=== PATIENT | male | born 1995 | race American Indian/Alaskan Native ===

== ENCOUNTER 2017-01-06 11:02 | Emergency (ER) | payer OTHER ==
[2017-01-06 11:33] VITALS: BP 120/70
[2017-01-06 11:51] LABS: Basophils % (Auto) 0.4 % (0.0-1.8); Eosinophils % (Auto) 0.4 % (0.0-4.3); Hematocrit 36.9 % (35.5-45.6); Hemoglobin 12.2 gm/dl (11.8-15.2); Mean Corpuscular HGB Conc 33 % (32-34); Mean Corpuscular Hemoglobin 31 pg (28-32); Mean Corpuscular Volume 94 fl (84-94); Platelet Count 389 K/mm3 (140-440); Red Blood Count 3.92 M/mm3 (3.65-5.03); Red Cell Distribution Width 13.2 % (13.2-15.2); White Blood Count 8.9 K/mm3 (4.5-11.0)
[2017-01-06 12:08] LABS: Anion Gap 16 mmol/L; Blood Urea Nitrogen 14 mg/dL (9-20); Calcium 8.8 mg/dL (8.4-10.2); Carbon Dioxide 28 mmol/L (22-30); Chloride 101.2 mmol/L (98-107); Glucose 91 mg/dL (75-100); Sodium 141 mmol/L (137-145)
[2017-01-06] MEDS ORDERED: DUONEB *Not for PRN Use IH ONE (12:08)
[2017-01-06] MEDS ORDERED: TESSALON PERLES PO ONE (12:08)
--- NOTE | 2017-01-06 12:08 | Emergency Department Report ---
HPI - General Chief Complaint: Upper Respiratory Infection Time Seen by Provider: 01/06/17 11:51 - HPI HPI: This is a 21-year-old Afro-I[place]ian male presents to emergency department with complaint of a two-week history of a productive cough with yellow and greenish sputum and a one-week history of subjective fever. The patient goes to [facility] and saw a nurse at the health center and was placed on doxycycline and naproxen. He continues to have this productive cough and subjective fever and so he returns here for further evaluation. He is a tobacco smoker but denies any illicit drug use. No recent travel or sick contacts at home. He does not have a primary care physician. He denies any known past medical history. ED Past Medical Hx - Past Medical History Previous Medical History?: Yes Hx HIV: No Additional medical history: Poss. HPV - Surgical History Past Surgical History?: Yes Additional Surgical History: Sinus surgery - Social History Smoking Status: Current Every Day Smoker Substance Use Type: Marijuana - Medications Home Medications: Home Medications Medication Instructions Recorded Confirmed Last Taken Type ALBUTEROL Inhaler [ProAir HFA 2 puff IH QID PRN #1 inhalation 01/06/17 Unknown Rx Inhaler] Benzonatate [Tessalon Perles] 100 mg PO Q8HR PRN #20 capsule 01/06/17 Unknown Rx ED Review of Systems ROS: Stated complaint: FEVER/DEHYDRATION/COUGH Other details as noted in HPI Comment: All other systems reviewed and negative Constitutional: chills, fever (subjective) Eyes: denies: eye pain, eye discharge, vision change ENT: denies: ear pain, throat pain Respiratory: cough. denies: orthopnea Cardiovascular: denies: chest pain, edema Gastrointestinal: denies: abdominal pain, nausea, diarrhea Genitourinary: denies: urgency, dysuria Musculoskeletal: denies: back pain, joint swelling, arthralgia Skin: denies: rash, lesions Neurological: denies: headache, weakness, paresthesias Physical Exam - Physical Exam Vital Signs: Vital Signs 01/06/17 01/06/17 11:24 11:53 Temperature 99.2 F 99.1 F Pulse Rate 96 H 80 Respiratory 20 20 Rate Blood Pressure 120/70 O2 Sat by Pulse 96 97 Oximetry Physical Exam: GENERAL: The patient is well-developed well-nourished. HENT: Normocephalic. Atraumatic. Patient has moist mucous membranes. Oropharynx is clear without tonsillar hypertrophy, erythema or exudates. EYES: Extraocular motions are intact. Pupils equal reactive to light bilaterally. NECK: Supple. Trachea is midline. CHEST/LUNGS: Clear to auscultation. There is no respiratory distress noted. No tachypnea or accessory muscle use. No cough heard during examination. HEART/CARDIOVASCULAR: Regular. There is no tachycardia. There is no gallop rub or murmur. ABDOMEN: Abdomen is soft, nontender. Patient has normal bowel sounds. There is no abdominal distention. SKIN: Skin is warm and dry. NEURO: The patient is awake, alert, and oriented. The patient is cooperative. The patient has no focal neurologic deficits. The patient has normal speech and gait. MUSCULOSKELETAL: There is no tenderness or deformity. There is no limitation range of motion. There is no evidence of acute injury. ED Course Vital Signs 01/06/17 01/06/17 11:24 11:53 Temperature 99.2 F 99.1 F Pulse Rate 96 H 80 Respiratory 20 20 Rate Blood Pressure 120/70 O2 Sat by Pulse 96 97 Oximetry ED Medical Decision Making - Lab Data Result diagrams: 01/06/17 11:39 01/06/17 11:39 - Radiology Data Radiology results: image reviewed interpreted by me: Chest x-ray does not show any acute process. There are no pleural effusions, obvious pneumonia and there is no pneumothorax. - Medical Decision Making 21-year-old male who is a chronic smoker presents with a chronic cough and some subjective fevers. He does not appear to have any fever here, any hypoxia and the rest of his vitals are stable. Labs are unremarkable including no leukocytosis. Chest x-ray does not show any pneumonia, pleural effusions, pneumothorax or any acute process. He was given a Tessalon Perle for cough and a breathing treatment. He will be given the same for a prescription for home as well as referrals for primary care. He appears safe for discharge home. - Differential Diagnosis asthma, bronchitis, pneumonia Critical Care Time: No Critical care attestation.: If time is entered above; I have spent that time in minutes in the direct care of this critically ill patient, excluding procedure time. ED Disposition Clinical Impression: Tobacco abuse, Bronchitis Disposition: DC-01 TO HOME OR SELFCARE Is pt being admited?: No Condition: Stable Instructions: Acute Bronchitis (ED) Additional Instructions: Follow-up with a primary care physician in the next few days if possible. Return to the emergency Department with any worsening of your symptoms or any acute distress. Prescriptions: ALBUTEROL Inhaler [ProAir HFA Inhaler] 2 puff IH QID PRN #1 inhalation PRN Reason: Shortness Of Breath Benzonatate [Tessalon Perles] 100 mg PO Q8HR PRN #20 capsule PRN Reason: Cough Referrals: PRIMARY CARE, [Primary Care Provider] - 3-5 Days SMITHA FALLON MD [Staff Physician] - 3-5 Days SHAD JOHNSON MD [Staff Physician] - 3-5 Days Time of Disposition: 12:50
--- NOTE | 2017-01-06 14:43 | XRay Report ---
ROUTINE CHEST, TWO VIEWS: History: Shortness of breath. PA and lateral views demonstrate the heart and mediastinal contour to be of normal size and shape. The lungs are clear and fully expanded and the soft tissues and bony structures are normal. IMPRESSION: Normal study.
== END 2017-01-06 13:47 | disposition home or self-care (01) ==
LOC: ED 11:02
DX: J40 Bronchitis, not specified as acute or chronic (principal); F17.200 Nicotine dependence, unspecified, uncomplicated
CPT/HCPCS: 36415; 71020; 80048; 85025

== ENCOUNTER 2017-11-14 20:02 | Emergency (ER) | payer BC ==
[2017-11-14 21:29] LABS: Basophils # (Auto) 0.1 K/mm3 (0.0-0.1); Basophils % (Auto) 0.5 % (0.0-1.8); Eosinophils % (Auto) 0.1 % (0.0-4.3); Hematocrit 35.3 % (35.5-45.6); Hemoglobin 11.6 gm/dl (11.8-15.2); Lymphocytes # (Auto) 3.8 K/mm3 (1.2-5.4); Lymphocytes % (Auto) 30.8 % (13.4-35.0); Mean Corpuscular HGB Conc 33 % (32-34); Mean Corpuscular Hemoglobin 32 pg (28-32); Mean Corpuscular Volume 97 fl (84-94); Monocytes # (Auto) 0.8 K/mm3 (0.0-0.8); Monocytes % (Auto) 6.7 % (0.0-7.3); Platelet Count 341 K/mm3 (140-440); Red Blood Count 3.63 M/mm3 (3.65-5.03)
[2017-11-14 21:36] LABS: Alanine Aminotransferase 43 units/L (7-56); BUN/Creatinine Ratio 14; Blood Urea Nitrogen 10 mg/dL (9-20); Calcium 8.3 mg/dL (8.4-10.2); Hemolysis Index 4
[2017-11-14 23:16] LABS: Bilirubin,Urine NEG (Negative); Blood,Urine NEG (Negative); Color,Urine Yellow (Yellow); Mucus,Urine FEW /HPF; Protein,Urine <15 mg/dL mg/dL (Negative); Urobilinogen,Urine < 2.0 mg/dL (<2.0)
[2017-11-15] MEDS ORDERED: TORADOL IV ONE (01:56)
--- NOTE | 2017-11-15 01:59 | Emergency Department Report ---
HPI - General Chief Complaint: Neuro Symptoms/Deficit Time Seen by Provider: 11/15/17 01:46 - HPI HPI: Room 26 The patient is a 22-year-old male presenting with a chief complaint of left jaw pain and swelling. Patient states yesterday morning he noticed slight swelling to the left jaw but then today swelling increase. Patient denies any preceding trauma. The patient admits to subjective fever or chills. Patient states she is also felt bloated and had diarrhea with it. Patient denies dental pain. The patient gives his pain a score of 2/10 Location: Left jaw, see above Duration: 2 days Quality: Pain Severity: 2/10 Modifying factors: [see above] Context: [see above] Mode of transportation: [not driving] ED Past Medical Hx - Past Medical History Hx Asthma: Yes (bronchitis) Additional medical history: Poss. HPV - Surgical History Additional Surgical History: Sinus surgery - Family History Family history: no significant - Social History Smoking Status: Current Every Day Smoker (1/7 per day) Substance Use Type: None (denies illicit drug use), Alcohol (occasional) - Medications Home Medications: Home Medications Medication Instructions Recorded Confirmed Last Taken Type ALBUTEROL Inhaler [ProAir HFA 2 puff IH QID PRN #1 inhalation 01/06/17 Unknown Rx Inhaler] Benzonatate [Tessalon Perles] 100 mg PO Q8HR PRN #20 capsule 01/06/17 Unknown Rx Amoxicillin 500 mg PO BID #20 capsule 11/15/17 Unknown Rx HYDROcodone/APAP 5-325 [[place] 1 - 2 each PO Q6HR PRN #14 tablet 11/15/17 Unknown Rx 5/325] Ibuprofen [Motrin 800 MG tab] 800 mg PO Q8HR PRN #20 tablet 11/15/17 Unknown Rx Simethicone 125 mg PO BID #10 capsule 11/15/17 Unknown Rx ED Review of Systems ROS: Stated complaint: LEFT CHECK SWELLING Other details as noted in HPI Constitutional: fever (subjective) Eyes: denies: eye pain ENT: denies: dental pain Cardiovascular: denies: chest pain Gastrointestinal: diarrhea, other (bloating) Genitourinary: denies: dysuria Musculoskeletal: denies: back pain Neurological: denies: headache Physical Exam - Physical Exam Vital Signs: Vital Signs 11/14/17 21:04 Temperature 99.3 F Pulse Rate 106 H Respiratory 18 Rate Blood Pressure 147/88 O2 Sat by Pulse 98 Oximetry Physical Exam: GENERAL: The patient is well-developed well-nourished male sitting on stretcher not appearing to be in acute distress. [] HEENT: Normocephalic. Atraumatic. Extraocular motions are intact. There is tender swelling overlying the left mandible body. There is tenderness to palpation. There is no overlying erythema. There appears to be with some teeth erupting from left lower posterior gingiva but it is nontender and patient does not complain of pain there. NECK: Supple. Trachea midline. There is no stridor CHEST/LUNGS: Clear to auscultation. There is no respiratory distress noted. HEART/CARDIOVASCULAR: Regular. There is no tachycardia. There is no gallop rub or murmur. ABDOMEN: Abdomen is soft, nontender. Patient has normal bowel sounds. There is no abdominal distention. SKIN: There is no rash. There is no edema. There is no diaphoresis. NEURO: The patient is awake, alert, and oriented. The patient is cooperative. The patient has normal speech MUSCULOSKELETAL: There is no evidence of acute injury. ED Course Vital Signs 11/14/17 21:04 Temperature 99.3 F Pulse Rate 106 H Respiratory 18 Rate Blood Pressure 147/88 O2 Sat by Pulse 98 Oximetry ED Medical Decision Making - Lab Data Result diagrams: 11/14/17 21:13 11/14/17 21:13 Laboratory Tests 11/14/17 11/14/17 11/14/17 21:13 21:13 22:37 WBC 12.4 H RBC 3.63 L Hgb 11.6 L Hct 35.3 L MCV 97 H MCH 32 MCHC 33 RDW 15.0 Plt Count 341 Lymph % (Auto) 30.8 [place] % (Auto) 6.7 Eos % (Auto) 0.1 Baso % (Auto) 0.5 Lymph # 3.8 [place] # 0.8 Eos # 0.0 Baso # 0.1 Seg Neutrophils % 61.9 Seg Neutrophils # 7.7 Sodium 136 L Potassium 3.9 Chloride 98.2 Carbon Dioxide 26 Anion Gap 16 BUN 10 Creatinine 0.7 L Estimated GFR > 60 BUN/Creatinine Ratio 14 Glucose 109 H Calcium 8.3 L Total Bilirubin 1.10 AST 59 H ALT 43 Alkaline Phosphatase 163 H Total Protein 8.6 H Albumin 3.0 L Albumin/Globulin Ratio 0.5 Urine Color Yellow Urine Turbidity Clear Urine pH 5.0 Ur Specific [place] 1.019 Urine Protein <15 mg/dl Urine Glucose (UA) Neg Urine Ketones Neg Urine Blood Neg Urine Nitrite Neg Urine Bilirubin Neg Urine Urobilinogen < 2.0 Ur Leukocyte Esterase Neg Urine WBC (Auto) 1.0 Urine RBC (Auto) 4.0 Urine Mucus Few - Radiology Data Radiology results: report reviewed (CT neck), image reviewed (CT neck) [facility] [address] [place] [address] Cat Scan Report Signed Patient: JAX RASHID MR#: [id number] : 1995 Acct:[id number] Age/Sex: 22 / M ADM Date: 11/14/17 Loc: ED Attending Dr: Ordering Physician: LELE FISHMAN MD Date of Service: 11/15/17 Procedure(s): CT neck w con Accession Number(s): [id number] cc: LELE FISHMAN MD FINAL REPORT EXAM: CT NECK W CON HISTORY: left mandibular pain and swelling TECHNIQUE: Routine axial imaging was obtained of the soft tissues of neck following the intravenous injection of 100 cc of Omnipaque 300. Sagittal and coronal reconstructions were reviewed. FINDINGS: There is soft tissue swelling overlying the left side of the body of the mandible. There is no evidence of abscess. There is extensive dental disease within the left lower mandibular teeth as well as in the left upper maxillary teeth. Adenopathy is not identified. The sinuses reveal mucosal thickening and polyps in the maxillary sinuses. There is patchy mucosal thickening in the ethmoid air cells and right sphenoid sinus. The airway appears normal. The vasculatures enhance normally. The parotid and submandibular glands appear normal. The retropharyngeal space appears normal. Lung apices are clear. The skeletal structures are well-maintained. IMPRESSION: Cellulitis along the left side of the body of the mandible. No evidence of abscess. Extensive dental disease involving the left-sided mandibular and maxillary teeth as described. Sinusitis as described. Transcribed By: RB Dictated By: DHEERAJ REEVES MD Electronically Authenticated By: DHEERAJ REEVES MD Signed Date/Time: 11/15/17305 DD/ 5 TD/TT: 11/15/17305 - Differential Diagnosis sialolithiasis, sialadenitis, lymphadenopathy, Critical care attestation.: If time is entered above; I have spent that time in minutes in the direct care of this critically ill patient, excluding procedure time. ED Disposition Clinical Impression: Dental infection Disposition: TO HOME OR SELFCARE Is pt being admited?: No Does the pt Need Aspirin: No Condition: Stable Instructions: Dental Caries (ED) Additional Instructions: Return to the emergency department immediately should you develop worsening symptoms, fever, inability to tolerate food or liquid or any other concerns. Prescriptions: Amoxicillin 500 mg PO BID #20 capsule HYDROcodone/APAP 5-325 [Castana 5/325] 1 - 2 each PO Q6HR PRN #14 tablet PRN Reason: Pain Ibuprofen [Motrin 800 MG tab] 800 mg PO Q8HR PRN #20 tablet PRN Reason: Pain, Moderate (4-6) Simethicone 125 mg PO BID #10 capsule Referrals: PRIMARY CARE, [Primary Care Provider] - 3-5 Days [facility] [Outside] - DEREK Time of Disposition: 03:24
--- NOTE | 2017-11-15 03:11 | Cat Scan Report ---
FINAL REPORT EXAM: CT NECK W CON HISTORY: left mandibular pain and swelling TECHNIQUE: Routine axial imaging was obtained of the soft tissues of neck following the intravenous injection of 100 cc of Omnipaque 300. Sagittal and coronal reconstructions were reviewed. FINDINGS: There is soft tissue swelling overlying the left side of the body of the mandible. There is no evidence of abscess. There is extensive dental disease within the left lower mandibular teeth as well as in the left upper maxillary teeth. Adenopathy is not identified. The sinuses reveal mucosal thickening and polyps in the maxillary sinuses. There is patchy mucosal thickening in the ethmoid air cells and right sphenoid sinus. The airway appears normal. The vasculatures enhance normally. The parotid and submandibular glands appear normal. The retropharyngeal space appears normal. Lung apices are clear. The skeletal structures are well-maintained. IMPRESSION: Cellulitis along the left side of the body of the mandible. No evidence of abscess. Extensive dental disease involving the left-sided mandibular and maxillary teeth as described. Sinusitis as described.
[2017-11-15] MEDS ORDERED: ROCEPHIN IM ONE (03:19)
[2017-11-15] MEDS ORDERED: XYLOCAINE 1% MPF 5 mL INFILTRATI ONE (03:19)
[2017-11-15 04:35] VITALS: BP 121/87
== END 2017-11-15 04:34 | disposition home or self-care (01) ==
LOC: ED 20:02
DX: K04.7 Periapical abscess without sinus (principal); F17.200 Nicotine dependence, unspecified, uncomplicated
CPT/HCPCS: 36415; 70491; 80053; 81001; 85025; 96372; 96374; 99284; J0696; J1885; Q9967

== ENCOUNTER 2021-12-27 23:13 | Emergency (ER) | payer SELFPAY ==
[2021-12-28] MEDS ORDERED: IBUPROFEN 600 MG TAB PO ONE (00:25)
[2021-12-28] MEDS ORDERED: ACETAMINOPHEN 325 MG TAB PO ONE (06:19)
[2021-12-28] MEDS ORDERED: TETANUS,DIPH,PERTUSS(ACELL) VACCINE 0.5 ML SYRINGE IM ONE (07:57)
[2021-12-28] MEDS ORDERED: LIDOCAINE (1%) 10 MG/1 ML VIAL 20 ML MDV INFILTRATI ONE (07:57)
[2021-12-28] MEDS ORDERED: NEOMY 3.5 MG/BACIT 400 UNITS/POLY B 5000 UNITS/GM OINT PACKET TP ONE (07:57)
[2021-12-28] MEDS ORDERED: SODIUM CHLORIDE 0.9% IRR 500 ML BOTTLE IR SCH (08:30)
[2021-12-28] MEDS ORDERED: LIDOCAINE-MPF (1%) 10 MG/1 ML VIAL 5 ML INFILTRATI SCH (08:30)
[2021-12-28] MEDS ORDERED: HYDROcodone/ACETAMINOPHEN 5-325 MG TAB PO SCH (08:30)
--- NOTE | 2021-12-28 08:59 | XRay Report ---
RIGHT FINGERS 2 VIEWS INDICATION: PAIN SP LAC. COMPARISON: None IMPRESSION: 2 views of the right third digit are presented. There is a complex anterior soft tissue laceration at the level of the middle phalanx. There is a linear density measuring 4 mm in the anteri or soft tissues which may represent a soft tissue foreign body. Please correlate with the image. The bony structures and joint spaces are unremarkable. Signer Name: Mckinley Schwartz Jr, MD Signed: 12/28/2021 8:54 AM Workstation Name: [id number]
[2021-12-28] MEDS ORDERED: SODIUM CHLORIDE 0.9% 1000 ML 2,000 ML IV ONE (09:02)
[2021-12-28] MEDS ORDERED: HYDROmorphone 1 MG/1 ML INJ IV ONE (09:02)
[2021-12-28 10:00] LABS: Hematocrit 32.6 % (35.5-45.6); Hemoglobin 11.2 gm/dl (11.8-15.2); Mean Corpuscular HGB Conc 34 % (32-34); Mean Corpuscular Volume 99 fl (84-94); Platelet Count 157 K/mm3 (140-440); Red Blood Count 3.31 M/mm3 (3.65-5.03); Red Cell Distribution Width 12.4 % (13.2-15.2)
[2021-12-28 10:17] LABS: Blood Urea Nitrogen 10 mg/dL (9-20); Calcium 7.9 mg/dL (8.4-10.2); Hemolysis Index 32
[2021-12-28 10:20] LABS: BUN/Creatinine Ratio 14
[2021-12-28] MEDS ORDERED: POTASSIUM CHLORIDE ER 20 MEQ TAB PO ONE (10:24)
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
[2021-12-28] MEDS ORDERED: HYDROcodone/ACETAMINOPHEN 10-325MG TAB PO ONE (11:08)
[2021-12-28 11:58] VITALS: BP 128/78
== END 2021-12-28 11:58 | disposition home or self-care (01) ==
LOC: ED 23:13
DX: S61.212A Laceration without foreign body of right middle finger without damage to nail, initial encounter (principal); J45.909 Unspecified asthma, uncomplicated; Z98.890 Other specified postprocedural states; Z88.1 Allergy status to other antibiotic agents; Z79.899 Other long term (current) drug therapy; I77.2 Rupture of artery; Y04.8XXA Assault by other bodily force, initial encounter; Y93.89 Activity, other specified; Y92.89 Other specified places as the place of occurrence of the external cause; Y99.8 Other external cause status
CPT/HCPCS: 12041; 36415; 73140; 80048; 85027; 90471; 90715; 96361; 96365; 96375; 99284; J0690; J1170; J3490

== ENCOUNTER 2022-01-05 07:25 | Emergency (ER) | payer SELFPAY ==
[2022-01-05 08:23] VITALS: BP 140/98
--- NOTE | 2022-01-05 08:43 | Emergency Department Report ---
ED Recheck HPI - General Chief Complaint: Laceration/Recheck/Suture Stated Complaint: RT HAND INJURY/STICHES Time Seen by Provider: 01/05/22 08:38 Source: patient Mode of arrival: Ambulatory Limitations: No Limitations - History of Present Illness Initial Comments: 26 yo comes to er for suture removal from finger. no new symptoms or complaints MD Complaint: suture/staple removal - Related Data Previous Rx's Medication Instructions Recorded Last Taken Type Albuterol Mdi (or & Nicu Only) 2 puff IH QID PRN #1 inhalation 01/06/17 Unknown Rx [ProAir HFA Inhaler] Benzonatate [Tessalon Perles] 100 mg PO Q8HR PRN #20 capsule 01/06/17 Unknown Rx Amoxicillin 500 mg PO BID #20 capsule 11/15/17 Unknown Rx HYDROcodone/APAP 5-325 [[place] 1 - 2 each PO Q6HR PRN #14 tablet 11/15/17 Unknown Rx 5/325] Ibuprofen [Motrin 800 MG tab] 800 mg PO Q8HR PRN #20 tablet 11/15/17 Unknown Rx Simethicone 125 mg PO BID #10 capsule 11/15/17 Unknown Rx Clindamycin [Clindamycin CAP] 300 mg PO Q8H #30 cap 12/28/21 Unknown Rx Ibuprofen [Motrin] 800 mg PO Q8HR PRN #30 tablet 12/28/21 Unknown Rx traMADoL [Ultram] 50 mg PO Q6HR PRN #10 tablet 12/28/21 Unknown Rx Allergies Allergy/AdvReac Type Severity Reaction Status Date / Time vancomycin AdvReac Unknown Verified 11/14/17 21:03 ED Review of Systems ROS: Stated complaint: RT HAND INJURY/STICHES Other details as noted in HPI Comment: All other systems reviewed and negative ED Past Medical Hx - Past Medical History Previous Medical History?: Yes Hx Asthma: Yes (bronchitis) Hx HIV: No Additional medical history: Poss. HPV - Surgical History Past Surgical History?: Yes Additional Surgical History: Sinus surgery - Family History Family history: no significant - Social History Smoking Status: Never Smoker Substance Use Type: None - Medications Home Medications: Home Medications Medication Instructions Recorded Confirmed Last Taken Type Albuterol Mdi (or & Nicu Only) 2 puff IH QID PRN #1 inhalation 01/06/17 Unknown Rx [ProAir HFA Inhaler] Benzonatate [Tessalon Perles] 100 mg PO Q8HR PRN #20 capsule 01/06/17 Unknown Rx Amoxicillin 500 mg PO BID #20 capsule 11/15/17 Unknown Rx HYDROcodone/APAP 5-325 [[place] 1 - 2 each PO Q6HR PRN #14 tablet 11/15/17 Unknown Rx 5/325] Ibuprofen [Motrin 800 MG tab] 800 mg PO Q8HR PRN #20 tablet 11/15/17 Unknown Rx Simethicone 125 mg PO BID #10 capsule 11/15/17 Unknown Rx Clindamycin [Clindamycin CAP] 300 mg PO Q8H #30 cap 12/28/21 Unknown Rx Ibuprofen [Motrin] 800 mg PO Q8HR PRN #30 tablet 12/28/21 Unknown Rx traMADoL [Ultram] 50 mg PO Q6HR PRN #10 tablet 12/28/21 Unknown Rx ED Physical Exam - General Limitations: No Limitations General appearance: alert, in no apparent distress - Head Head exam: Present: atraumatic, normocephalic - Eye Eye exam: Present: normal appearance - ENT ENT exam: Present: mucous membranes moist - Neck Neck exam: Present: normal inspection - Respiratory Respiratory exam: Present: normal lung sounds bilaterally. Absent: respiratory distress - Cardiovascular Cardiovascular Exam: Present: regular rate, normal rhythm. Absent: systolic murmur, diastolic murmur, rubs, gallop - GI/Abdominal GI/Abdominal exam: Present: soft, normal bowel sounds - Rectal Rectal exam: Present: deferred - Extremities Exam Extremities exam: Present: normal inspection - Back Exam Back exam: Present: normal inspection - Neurological Exam Neurological exam: Present: alert, oriented X3 - Psychiatric Psychiatric exam: Present: normal affect, normal mood - Skin Skin exam: Present: warm, dry, intact, normal color. Absent: rash ED Course Vital Signs 01/05/22 08:21 Temperature 98.3 F Pulse Rate 74 Respiratory 16 Rate Blood Pressure 140/98 [Right] O2 Sat by Pulse 96 Oximetry ED Recheck MDM - Core Measures Measure Exclusions: not indicated - Differential Diagnosis Suture/Staple Removal - Medical Decision Making sutures x 2 removed no bleeding pink granulation tissue finger is swollen and feels stiff per pt he has full extension; flexion limited by swelling rapid cap refill distal finger pink sensation intact wound care provided wound cleaned stitches d/c no drainage steristrips applied tolerated well dc home with dc plan of care including diet, meds, activity and follow up pt to follow up with pcp or ortho as instructed Vital Signs 01/05/22 08:21 Temperature 98.3 F Pulse Rate 74 Respiratory 16 Rate Blood Pressure 140/98 [Right] O2 Sat by Pulse 96 Oximetry Critical care attestation.: If time is entered above; I have spent that time in minutes in the direct care of this critically ill patient, excluding procedure time. ED Disposition Clinical Impression: Visit for suture removal Disposition: HOME / SELF CARE / HOMELESS Is pt being admited?: No Does the pt Need Aspirin: No Condition: Stable Instructions: Wound Closure Removal, Care After Additional Instructions: rest ice elevate finger at night keep covered clean twice per day with soap and water diet and activity as tolerated continue antibiotics until gone this will take some time to heal follow up with pcp and or ortho in 2 weeks for recheck referrals below Referrals: PRIMARY CARE [Primary Care Provider] - 3-5 Days Time of Disposition: 09:46
== END 2022-01-05 10:44 | disposition home or self-care (01) ==
LOC: ED 07:25
DX: S61.411D Laceration without foreign body of right hand, subsequent encounter (principal); X58.XXXD Exposure to other specified factors, subsequent encounter
CPT/HCPCS: 99282